=== PATIENT | male | born 1960 | race Caucasian/White ===

== ENCOUNTER 2019-06-03 09:42 | Day surgery (SDC) | payer MEDICARE, OTHER ==
[~2019-06-03 09:42] MED LIST: CEFAZOLIN SODIUM 1 GM in DEXTROSE 5%-WATER 50 ML IV PRN
[2019-06-03 10:59] LABS: HEMATOCRIT 45.2 % (37.9-51.0); HEMOGLOBIN 15.2 g/dL (13.5-17.0); MEAN CORPUSCULAR HEMOGLOBIN 31.4 pg (27.0-33.4); MEAN CORPUSCULAR HGB CONC 33.6 g/dL (32.0-36.0); MEAN CORPUSCULAR VOLUME 94 fl (80-97); PLATELET COUNT 199 10^3/uL (150-450); RED BLOOD COUNT 4.84 10^6/uL (4.35-5.55); RED CELL DISTRIBUTION WIDTH 14.1 % (11.5-14.0); WHITE BLOOD COUNT 8.9 10^3/uL (4.0-10.5)
[2019-06-03 11:06] LABS: INTERNATIONAL RATION (INR) 1.01; PROTHROMBIN TIME 13.3 SEC (11.4-15.4)
[2019-06-03 11:07] LABS: PARTIAL THROMBOPLASTIN TIME 25.9 SEC (23.5-35.8)
[2019-06-03] MEDS ORDERED: LIDOCAINE 2% INJ (20 MG/ML) 20 ML MDV ONE (11:21)
[2019-06-03] MEDS ORDERED: FENTANYL CITRATE INJ/PF 100 MCG/2 ML AMPUL ONE (11:47)
[2019-06-03] MEDS ORDERED: MIDAZOLAM 2 MG/2 ML INJ ONE (11:47)
[2019-06-03] MEDS ORDERED: PROPOFOL INJ 200 MG/20 ML VIAL IV ONE (11:48)
[2019-06-03 12:17] LABS: APPEARANCE,URINE CLEAR; BILIRUBIN,URINE NEGATIVE (NEGATIVE); COLOR,URINE YELLOW; GLUCOSE, URINE NEGATIVE (NEGATIVE); KETONES,URINE NEGATIVE (NEGATIVE); LEUKOCYTE ESTERASE,URINE NEGATIVE (NEGATIVE); NITRITE,URINE NEGATIVE (NEGATIVE); PROTEIN,URINE NEGATIVE (NEGATIVE); URINE SPECIFIC GRAVITY 1.023; UROBILINOGEN,URINE NEGATIVE mg/dL (<2.0)
[2019-06-03] MEDS ORDERED: ONDANSETRON HCL INJ/PF 4 MG/2 ML SDV IV PRN ×2 (13:11→14:10)
[2019-06-03] MEDS ORDERED: MEPERIDINE HCL/PF INJ 25 MG/1 ML DISP.SYRIN IV PRN (13:11)
[2019-06-03] MEDS ORDERED: FENTANYL CITRATE INJ/PF 100 MCG/2 ML AMPUL IV PRN ×3 (13:11)
[2019-06-03] MEDS ORDERED: OXYCODONE-ACETAMINOPHEN 5-325 MG TABLET PO PRN ×3 (13:11→14:10)
[2019-06-03] MEDS ORDERED: MORPHINE SULFATE 10 MG/ML INJ IV PRN (13:11)
[2019-06-03] MEDS ORDERED: DIPHENHYDRAMINE HCL 50 MG/ML VIAL IV PRN (13:11)
--- NOTE | 2019-06-03 13:44 | Operative Report ---
Operative Report DATE OF SURGERY: 06/03/19 PREOPERATIVE DIAGNOSIS: Compression fracture of the L1 vertebral body POSTOPERATIVE DIAGNOSIS: Same OPERATION: Percutaneous balloon kyphoplasty with bipedicular approach of the L1 vertebral body SURGEON: RODRIGO MORIN ANESTHESIA: LMAC TISSUE REMOVED OR ALTERED: None COMPLICATIONS: No complications ESTIMATED BLOOD LOSS: 5mL INTRAOPERATIVE FINDINGS: Excellent spread of methylmethacrylate cement throughout the vertebral body with no extravasation PROCEDURE: > > DESCRIPTION OF PROCEDURE: > The patient was taken to the preoperative suite, informed consent was obtained from the patient, and all appropriate preoperative documentation was completed. Intravenous access was obtained and the patient was moved to the operating room. A time out was performed with the patient, nurse and attending physician present in the operative suite. Prophylactic antibiotics were administered in the form of Ancef 1000 mg IV preoperatively and less than one hour before incision. The patient was positioned prone and all pressure points were checked while the nisha ent was awake. Monitored anesthesia care was subsequently induced by the anesthesia care provider. > The L1 vertebral body was identified with fluoroscopic guidance. The skin overlying the target area was prepped with chlorhexidine and sterilely draped in the usual fashion maintaining meticulous sterile technique and an [place] drape. Local anesthesia was obtained with a total of 10 ml of preservative free 1% Lidocaine. A stab incision was made 1 cm lateral of the lateral border of each pedicle at the level of the target vertebral body. A 10 gauge trocar was introduced safely through each pedicle just inside the target vertebral body. The stylet of the trocar was removed and a working cannula was left in place. A biopsy was obtained through each trocar. A drill was then inserted through both working cannulas, advanced under lateral fluoroscopic imaging, to a point just posterior to the anterior vertebral body wall. The drill was removed and balloons (one in each pedicle) were inserted through the working cannula stopping posterior to the anterior vertebral body wall. The balloons were inflated with radiopaque contrast dye in .5 mL increments. Lateral fluoroscopic images were obtained to confirm balloon inflation did not breach the superior or inferior endplates. A/P fluoroscopic images were obtained periodically to confirm that the lateral reynolds were not breached. Inflation of the balloons continued until the desired fracture reduction was achieved. PMMA bone cement was prepared and filled in bone filler cannulas. The balloons were deflated and removed. The cement filled cannulas were inserted through the working cannula to the anterior portion of the vertebral body. The cement cannula plungers were used to push .2 mL increments of cement into the vertebral body. Lateral fluoroscopic images were obtained at .2 mL increments to verify that the cement did not extravasate. A/P fluoroscopic views were taken at incrementally to verify that the cement did not extravasate laterally. Safe cement fill continued until the anterior 2/3 and the top of the vertebral body was filled. A total of 3 mL of cement was inserted through each working cannula for a total fill of 6 mL. the bone cement cannulas were removed. Lateral fluoroscopic imaging confirmed that no cement migrated posteriorly up the working cannula. The working cannulas were removed and pressure was applied to the incision sites until adequate hemostasis was assured. The incision sites were then copiously irrigated with bacitracin solution. The skin was closed with steri tsrips and each site was covered with a sterile adhesive bandage. OPERATING ROOM DISPOSITION: The patient was taken from the operating room to the recovery room in stable condition. FINAL DISPOSITION: The patient was discharged from the PACU after appropriate discharge criteria were met. POST OPERATIVE PRESCRIPTION: Patient's prescriptions were already provided. FOLLOW UP:The patient is to follow up in clinic within 24 hours
--- NOTE | 2019-06-03 14:14 | RADIOLOGY REPORT (SQ) ---
EXAM DESCRIPTION: L SPINE 2 VIEWS; NO CHG FLUORO COMPLETED DATE/TIME: 06/03/2019 2:05 pm; 06/03/2019 2:04 pm REASON FOR STUDY: KYPHOPLASTY ASST WITH FLUORO IN OR Z79.01 PENITENTIARY (CURRENT) USE OF ANTICOAGULAN TS COMPARISON: None. FLUOROSCOPY TIME: 3.8 minutes Spot images saved to PACS. TECHNIQUE: Intra-operative images acquired during surgical procedure to evaluate progress. NUMBER OF IMAGES: 20 LIMITATIONS: None. FINDINGS: Fluoroscopy was provided for intraoperative procedure. Please refer to the operative repo rt for further discussion. IMPRESSION: IMAGE(S) OBTAINED DURING PROCEDURE. COMMENT: Quality ID 145: Final reports for procedures using fluoroscopy that document radiation exp osure indices, or exposure time and number of fluorographic images (if radiation exposure indices are not available) Please consult full operative report of the attending physician for description of the procedure. TECHNICAL DOCUMENTATION: JOB ID: [id number] [employer]- All Rights Reserved Reading location - IP/workstation name: [email or web address]
--- NOTE | 2019-06-03 14:14 | RADIOLOGY REPORT (SQ) ---
EXAM DESCRIPTION: L SPINE 2 VIEWS; NO CHG FLUORO COMPLETED DATE/TIME: 06/03/2019 2:05 pm; 06/03/2019 2:04 pm REASON FOR STUDY: KYPHOPLASTY ASST WITH FLUORO IN OR Z79.01 DETENTION (CURRENT) USE OF ANTICOAGULAN TS COMPARISON: None. FLUOROSCOPY TIME: 3.8 minutes Spot images saved to PACS. TECHNIQUE: Intra-operative images acquired during surgical procedure to evaluate progress. NUMBER OF IMAGES: 20 LIMITATIONS: None. FINDINGS: Fluoroscopy was provided for intraoperative procedure. Please refer to the operative repo rt for further discussion. IMPRESSION: IMAGE(S) OBTAINED DURING PROCEDURE. COMMENT: Quality ID [id number]: Final reports for procedures using fluoroscopy that document radiation exp osure indices, or exposure time and number of fluorographic images (if radiation exposure indices are not available) Please consult full operative report of the attending physician for description of the procedure. TECHNICAL DOCUMENTATION: JOB ID: [id number] [employer]- All Rights Reserved Reading location - IP/workstation name: [email or web address]
[2019-06-03 15:38] VITALS: BP 147/57
--- NOTE | 2019-06-03 19:02 | EKG REPORT ---
SEVERITY:- NORMAL ECG - SINUS RHYTHM : Confirmed by: Betty Moseley MD 03-Jun-2019 19:01:13
== END 2019-06-03 14:50 | disposition home or self-care (01) ==
LOC: OROUT 09:42
PROVIDERS: ATTEND Pain Medicine Interventional Pain Medicine
DX: S32.010S Wedge compression fracture of first lumbar vertebra, sequela (principal); X58.XXXS Exposure to other specified factors, sequela; G89.11 Acute pain due to trauma; M54.5 Low back pain; G89.4 Chronic pain syndrome; M51.37 Other intervertebral disc degeneration, lumbosacral region; I10 Essential (primary) hypertension; E11.9 Type 2 diabetes mellitus without complications; G47.33 Obstructive sleep apnea (adult) (pediatric); Z86.73 Personal history of transient ischemic attack (TIA), and cerebral infarction without residual deficits
CPT/HCPCS: 36415; 82962; 85027; 85610; 85730; 81001; 72100; 93005; 93010; 01936; 22514; C1713; J2250; J3490; J0690; J3010; J7060; J2704; 1936

== ENCOUNTER → 2019-06-26 | Outpatient (CLI) | payer MEDICARE, OTHER ==
--- NOTE | 2019-06-26 17:55 | RADIOLOGY REPORT (SQ) ---
EXAM DESCRIPTION: CHEST 2 VIEWS COMPLETED DATE/TIME: 06/26/2019 5:05 pm REASON FOR STUDY: R05 COUGH COMPARISON: AP chest 12/12/2010 EXAM PARAMETERS: NUMBER OF VIEWS: two views TECHNIQUE: Digital Frontal and Lateral radiographic views of the chest acquired. RADIATION DOSE: NA LIMITATIONS: none FINDINGS: LUNGS AND PLEURA: No opacities, masses or pneumothorax. No pleural effusion. MEDIASTINUM AND HILAR STRUCTURES: No masses or contour abnormalities. HEART AND VASCULAR STRUCTURES: Heart normal size. No evidence for failure. BONES: Old healed left upper lateral rib fractures. HARDWARE: None in the chest. OTHER: No other significant finding. IMPRESSION: NO ACUTE RADIOGRAPHIC FINDING IN THE CHEST. TECHNICAL DOCUMENTATION: JOB ID: [id number] [employer]- All Rights Reserved Reading location - IP/workstation name: [email or web address]
== END ==
LOC: RAD 16:53
PROVIDERS: ATTEND Nurse Practitioner Family
DX: R05 Cough (principal)
CPT/HCPCS: 71046